=== PATIENT | male | born 1945 | race African-American/Black ===

== ENCOUNTER 2018-04-10 10:03 | Emergency (ER) | payer MEDICARE, MEDICAID, OTHER ==
[~2018-04-10] VITALS: Ht 182.9 cm; Wt 82.0 kg
[2018-04-10] MEDS ORDERED: HYDROCODONE/ACETAMINOPHEN 5/325MG TABLET PO ONE (13:30)
[2018-04-10 16:13] VITALS: BP 130/66
== END 2018-04-10 16:25 | disposition home or self-care (01) ==
LOC: ER 10:03
DX: S16.1XXA Strain of muscle, fascia and tendon at neck level, initial encounter (principal); S39.012A Strain of muscle, fascia and tendon of lower back, initial encounter; I10 Essential (primary) hypertension; V43.52XA Car driver injured in collision with other type car in traffic accident, initial encounter; Y93.89 Activity, other specified; Y92.411 Interstate highway as the place of occurrence of the external cause
CPT/HCPCS: 72131; 73562; 99283

== ENCOUNTER 2018-07-23 06:34 | Emergency (ER) | payer MEDICARE, MEDICAID, OTHER ==
[~2018-07-23] VITALS: Ht 188 cm; Wt 82.0 kg
[2018-07-23] MEDS ORDERED: MORPHINE SULFATE 4 MG/ML CPJ (NOT FOR IM USE) IV STA (07:08)
[2018-07-23] MEDS ORDERED: SODIUM CHLORIDE 0.9% 1,000 ML IV ONE (07:08)
[2018-07-23] MEDS ORDERED: ONDANSETRON HCL 4MG/2ML INJ IV STA (07:08)
[2018-07-23] MEDS ORDERED: CYCLOBENZAPRINE 10MG TABLET PO ONE (07:15)
[2018-07-23 07:21] LABS: BASOPHILS % 0.4 % (0.0-2.0); EOSINOPHILS % 2.1 % (0.0-5.0); HEMATOCRIT. 32.6 % (42.0-52.0); LYMPHOCYTES % 15.5 % (20.0-50.0); MEAN CORPUSCULAR HEMOGLOBIN 31.7 pg (28.0-32.0); MEAN CORPUSCULAR VOLUME 93.9 fL (80.0-94.0); MEAN PLATELET VOLUME 8.3 fl (7.4-10.4); MONOCYTES % 9.2 % (2.0-8.0); NEUTROPHILS % 72.8 % (40.0-76.0); PLATELET 292 x1000/uL (130-400); RED BLOOD CELL COUNT 3.47 mill/uL (4.7-6.1); RED CELL DISTRIBUTION WIDTH 12.5 % (11.6-14.6)
[2018-07-23 07:26] LABS: CHLORIDE 104 mEq/L (98-107)
[2018-07-23] MEDS ORDERED: MORPHINE SULFATE 4 MG/ML CPJ (NOT FOR IM USE) IV ONE (09:00)
[2018-07-23 09:27] LABS: CLARITY URINE CLEAR (CLEAR); COLOR URINE YELLOW (YELLOW); KETONES URINE NEGATIVE (NEGATIVE); LEUKOCYTE ESTERASE URINE NEGATIVE (NEGATIVE); NITRITE URINE NEGATIVE (NEGATIVE); OCCULT BLOOD URINE NEGATIVE (NEGATIVE); PH URINE 8.5 (4.5-8.0); PROTEIN URINE NEGATIVE (NEGATIVE); SPECIFIC GRAVITY URINE 1.014 (1.005-1.030); UROBILINOGEN URINE 0.2 E.U./dL (0.2-1.0)
[2018-07-23 13:13] VITALS: BP 148/68
== END 2018-07-23 12:30 | disposition home or self-care (01) ==
LOC: ER 06:34
DX: M48.061 Spinal stenosis, lumbar region without neurogenic claudication (principal); E11.9 Type 2 diabetes mellitus without complications; I10 Essential (primary) hypertension; M51.36 Other intervertebral disc degeneration, lumbar region
CPT/HCPCS: 36415; 72125; 72131; 80053; 81003; 85025; 96374; 96375; 99284; J2270; J2405; J7030

== ENCOUNTER 2018-07-29 08:23 | Emergency (ER) | payer MEDICARE, OTHER ==
[~2018-07-29] VITALS: Ht 180.3 cm; Wt 84.0 kg
[2018-07-29] MEDS ORDERED: SODIUM CHLORIDE 0.9% 1,000 ML IV ONE (09:07)
[2018-07-29 09:26] LABS: BASOPHILS % 0.3 % (0.0-2.0); EOSINOPHILS % 0.6 % (0.0-5.0); HEMATOCRIT. 31.3 % (42.0-52.0); HEMOGLOBIN. 10.5 g/dL (14.0-18.0); LYMPHOCYTES % 8.4 % (20.0-50.0); MEAN CORPUSCULAR HEMOGLOBIN 31.2 pg (28.0-32.0); MEAN CORPUSCULAR VOLUME 92.8 fL (80.0-94.0); MEAN PLATELET VOLUME 8.8 fl (7.4-10.4); MONOCYTES % 10.2 % (2.0-8.0); NEUTROPHILS % 80.5 % (40.0-76.0); PLATELET 252 x1000/uL (130-400); RED BLOOD CELL COUNT 3.38 mill/uL (4.7-6.1); RED CELL DISTRIBUTION WIDTH 12.6 % (11.6-14.6)
[2018-07-29 09:30] LABS: CHLORIDE 99 mEq/L (98-107)
[2018-07-29 09:33] LABS: INR 1.1; PARTIAL THROMBOPLASTIN TIME 29.5 sec (23.4-31.0); PROTHROMBIN TIME 11.5 sec (9.6-11.0)
[2018-07-29 09:38] LABS: CREATINE KINASE 38 IU/L (39-308)
[2018-07-29 09:40] LABS: CREATINE KINASE MB FRACTION < 1.0 ng/mL (0.5-3.6)
[2018-07-29] MEDS ORDERED: ONDANSETRON HCL 4MG/2ML INJ IV ONE ×2 (10:15→11:30)
[2018-07-29] MEDS ORDERED: MORPHINE SULFATE 4 MG/ML CPJ (NOT FOR IM USE) IV ONE ×2 (10:15→11:30)
[2018-07-29] MEDS ORDERED: DEXAMETHASONE 10 MG/ML VIAL IV ONE (11:15)
[2018-07-29] MEDS ORDERED: DEXAMETHASONE 4MG/ML 1ML VIAL IV SCH (12:00)
[2018-07-29] MEDS ORDERED: MORPHINE SULFATE 2 MG/ML CPJ (NOT FOR IM USE) IV PRN (13:45)
[2018-07-29] MEDS ORDERED: HYDROCODONE/ACETAMINOPHEN 5/325MG TABLET PO NR (13:45)
[2018-07-29] MEDS ORDERED: ONDANSETRON HCL 4MG/2ML INJ IV PRN (13:45)
[2018-07-29] MEDS ORDERED: ACETAMINOPHEN 325MG TABLET PO PRN (13:45)
[2018-07-29] MEDS ORDERED: CLONIDINE 0.1MG TABLET PO PRN (13:45)
[2018-07-29 16:10] VITALS: BP 152/76
== END 2018-07-29 17:50 | disposition short-term general hospital (02) ==
LOC: ER 08:23 → EDBEDREQ 09:21 → EDBEDREQSVC 12:22 → EDBEDREQ 12:25 → ENRESERV 12:50 → CANRESERV 12:50 → EDRESERV 12:50 → CANBEDREQ 12:51 → ER 17:50
DX: M48.00 Spinal stenosis, site unspecified (principal); G89.29 Other chronic pain; E86.0 Dehydration; I10 Essential (primary) hypertension
CPT/HCPCS: 36415; 71045; 72141; 80053; 82550; 82553; 83880; 84484; 85025; 85610; 85730; 93005; 96361; 96374; 96375; 96376; 99291; J1100; J2270; J2405; J7030; L0172

== ENCOUNTER 2019-06-18 13:43 | Emergency (ER) | payer MEDICAID, MEDICARE, OTHER ==
[~2019-06-18] VITALS: Ht 180.3 cm; Wt 74.8 kg
[2019-06-18] MEDS ORDERED: KETOROLAC 30MG/ML VIAL IV STA (14:15)
[2019-06-18] MEDS ORDERED: SODIUM CHLORIDE 0.9% 1,000 ML IV ONE (14:15)
[2019-06-18 14:58] LABS: BASOPHILS % 0.2 % (0.0-2.0); HEMATOCRIT. 37.5 % (42.0-52.0); HEMOGLOBIN. 12.6 g/dL (14.0-18.0); LYMPHOCYTES % 8.7 % (20.0-50.0); MEAN CORPUSCULAR HEMOGLOBIN 30.8 pg (28.0-32.0); MEAN CORPUSCULAR VOLUME 91.7 fL (80.0-94.0); MEAN PLATELET VOLUME 9.6 fl (7.4-10.4); MONOCYTES % 9.1 % (2.0-8.0); PLATELET 323 x1000/uL (130-400); RED BLOOD CELL COUNT 4.08 mill/uL (4.7-6.1); RED CELL DISTRIBUTION WIDTH 13.1 % (11.6-14.6)
[2019-06-18 15:03] LABS: CHLORIDE 98 mEq/L (98-107)
[2019-06-18] MEDS ORDERED: POTASSIUM CHLORIDE 20MEQ TABLET SR PO ONE (15:45)
[2019-06-18] MEDS ORDERED: ONDANSETRON HCL 4MG/2ML INJ IV STA (16:06)
[2019-06-18] MEDS ORDERED: MORPHINE SULFATE 4 MG/ML CPJ (NOT FOR IM USE) IV STA (16:06)
[2019-06-18 17:23] LABS: CLARITY URINE CLEAR (CLEAR); COLOR URINE DARK YELLOW (YELLOW); KETONES URINE 1+ (NEGATIVE); LEUKOCYTE ESTERASE URINE NEGATIVE (NEGATIVE); NITRITE URINE NEGATIVE (NEGATIVE); OCCULT BLOOD URINE NEGATIVE (NEGATIVE); PROTEIN URINE 1+ (NEGATIVE); SPECIFIC GRAVITY URINE 1.019 (1.005-1.030)
[2019-06-18 19:10] VITALS: BP 125/75
== END 2019-06-18 19:43 | disposition home or self-care (01) ==
LOC: ER 13:43
DX: R53.1 Weakness (principal); M54.2 Cervicalgia; M54.89 Other dorsalgia; I10 Essential (primary) hypertension
CPT/HCPCS: 36415; 71045; 80053; 81003; 83880; 84484; 85025; 87086; 93005; 96374; 96375; 99285; J1885; J2270; J2405; J7030

== ENCOUNTER 2019-06-20 11:00 | Emergency (ER) | payer MEDICARE ==
[~2019-06-20] VITALS: Ht 180.3 cm; Wt 74.0 kg
[2019-06-20] MEDS ORDERED: KETOROLAC 30MG/ML VIAL IV STA (11:34)
[2019-06-20] MEDS ORDERED: ACETAMINOPHEN WITH CODEINE 300/30MG TABLET PO ONE (11:45)
[2019-06-20 13:12] VITALS: BP 132/62
== END 2019-06-20 13:22 | disposition home or self-care (01) ==
LOC: ER 11:00
DX: M54.2 Cervicalgia (principal); M19.90 Unspecified osteoarthritis, unspecified site; I10 Essential (primary) hypertension
CPT/HCPCS: 72125; 96374; 99284; J1885

== ENCOUNTER 2020-09-11 14:03 | Emergency (ER) | payer MEDICARE ==
[~2020-09-11] VITALS: Ht 177.8 cm; Wt 73.0 kg
[~2020-09-11 14:03] MED LIST: ATEN-42 MT; HYDR50TA MT
[2020-09-11 17:42] LABS: CLARITY URINE CLEAR (CLEAR); COLOR URINE YELLOW (YELLOW); KETONES URINE NEGATIVE (NEGATIVE); LEUKOCYTE ESTERASE URINE TRACE (NEGATIVE); NITRITE URINE NEGATIVE (NEGATIVE); OCCULT BLOOD URINE NEGATIVE (NEGATIVE); PROTEIN URINE NEGATIVE (NEGATIVE); SPECIFIC GRAVITY URINE 1.024 (1.005-1.030)
[2020-09-11 18:14] LABS: BASOPHILS % 0.4 % (0.0-2.0); EOSINOPHILS % 1.7 % (0.0-5.0); LYMPHOCYTES % 12.6 % (20.0-50.0); MEAN CORPUSCULAR HEMOGLOBIN 31.8 pg (28.0-32.0); MEAN CORPUSCULAR VOLUME 92.9 fL (80.0-94.0); MEAN PLATELET VOLUME 9.3 fl (7.4-10.4); MONOCYTES % 9.3 % (2.0-8.0); PLATELET 265 x1000/uL (130-400); RED BLOOD CELL COUNT 3.76 mill/uL (4.7-6.1); RED CELL DISTRIBUTION WIDTH 13.3 % (11.6-14.6)
[2020-09-11 18:19] LABS: CHLORIDE 107 mEq/L (98-107)
[2020-09-11] MEDS ORDERED: HYDROCODONE/ACETAMINOPHEN 5/325MG TABLET PO ONE ×2 (19:45→22:00)
[2020-09-11] MEDS ORDERED: ONDANSETRON 4MG ODT PO ONE (19:45)
[2020-09-11 21:56] VITALS: BP 131/79
== END 2020-09-11 21:56 | disposition left against medical advice (07) ==
LOC: ER 14:03
DX: K80.20 Calculus of gallbladder without cholecystitis without obstruction (principal); I10 Essential (primary) hypertension; Z98.890 Other specified postprocedural states
CPT/HCPCS: 36415; 76705; 80053; 81003; 83690; 85025; 99284; Q0162; 99285